=== PATIENT | male | born 1960 | race Caucasian/White ===

== ENCOUNTER 2020-10-01 13:21 | Day surgery (SDC) | payer BC ==
[~2020-10-01] VITALS: Ht 190.5 cm; Wt 100.6 kg
[~2020-10-01 13:21] MED LIST: BUTONI IM; DHEA PO; MULTI-VITAMIN1 EAC2 PO; OMEGA-3 FISH O1 EAC4 PO; SUMA6I SC; VITAMIN D5000 UNIT PO
--- NOTE | 2020-10-01 13:49 | NUR ---
10/01/20 1349 MARCOS CANDELARIA ONE ATTEMPT IN RH BY ANNETTE MISSED SECOND SUCCESSFUL BY RN IN RFA PT TOW
== END 2020-10-01 16:13 | disposition home or self-care (01) ==
LOC: ORSCSDS 13:21
DX: Z12.11 Encounter for screening for malignant neoplasm of colon (principal); D12.3 Benign neoplasm of transverse colon; D12.2 Benign neoplasm of ascending colon; K62.1 Rectal polyp; K63.5 Polyp of colon
CPT/HCPCS: 88305; J2250; J2704

== ENCOUNTER → 2023-06-11 | Outpatient (CLI) | payer BC | LOC: LAB SHORT 15:24 → LAB 15:24 | DX: D22.39 Melanocytic nevi of other parts of face (principal); F42.4 Excoriation (skin-picking) disorder | CPT/HCPCS: 88305 ==

== ENCOUNTER 2024-04-17 11:06 | Day surgery (SDC) | payer BC ==
[~2024-04-17] VITALS: Ht 190.5 cm; Wt 109.2 kg
[~2024-04-17 11:06] MED LIST changes: +Lactated Ringer's 1,000 ML IV ONE; +propofoL 50 ML IV ONE
[2024-04-17] MEDS ORDERED: Lactated Ringer's 1,000 ML IV ONE (12:07)
[2024-04-17 14:20] VITALS: BP 116/83
== END 2024-04-17 14:11 | disposition home or self-care (01) ==
LOC: ORSCSDS 11:06
PROVIDERS: Internal Medicine Gastroenterology
PROC: 0DJ08ZZ Inspection of Upper Intestinal Tract, Via Natural or Artificial Opening Endoscopic (ICD-10-PCS; principal; 2024-04-17 12:30)
PROC: 0DBK8ZX Excision of Ascending Colon, Via Natural or Artificial Opening Endoscopic, Diagnostic (ICD-10-PCS; 2024-04-17 12:30)
DX: K21.9 Gastro-esophageal reflux disease without esophagitis (principal); Z12.11 Encounter for screening for malignant neoplasm of colon; Z86.0101 Personal history of adenomatous and serrated colon polyps; K63.5 Polyp of colon; Z79.899 Other long term (current) drug therapy
CPT/HCPCS: 88305; J2704; J7120